=== PATIENT | female | born 1975 | race African-American/Black ===

== ENCOUNTER → 2017-02-24 | Outpatient (CLI) | payer OTHER ==
--- NOTE | 2017-02-24 13:33 | Diagnostic Imaging Report ---
EXAMINATION: Right breast ultrasound. INDICATION: Right breast hypoechoic lesion at the 8 o'clock zone. COMPARISON: 08/10/2016. FINDINGS: The previously seen lobulated lesion at the 8 o'clock zone 3 cm from the nipple is again noted measuring 0.9 x 0.4 x 0.6 cm, questionably minimally smaller compared to the prior study. Internal hypoechogenicity is seen with no internal blood flow. The lesion is favored to be a complicated cyst. An adjacent simple cyst is seen. IMPRESSION: A 0.9 cm hypoechoic lesion is favored to be a complicated cyst, questionably smaller compared to 08/10/2016. Re-evaluation with ultrasound when the patient is due for her next bilateral mammogram in July 2017 is recommended. ACR BI-RADS Category 3: Probably benign findings. Dictated by: Dictated on workstation # [id number]
== END ==
LOC: RAD 12:15
PROVIDERS: ATTEND Nurse Practitioner Family
DX: N60.01 Solitary cyst of right breast (principal)

== ENCOUNTER → 2017-08-17 | Outpatient (CLI) | payer OTHER ==
--- NOTE | 2017-08-17 10:52 | Diagnostic Imaging Report ---
Bilateral diagnostic mammogram with tomography. CAD is utilized. INDICATION: Followup asymmetry in the upper aspect on the right MLO view. FINDINGS: The breasts are composed of heterogeneously dense parenchyma which may decrease mammographic sensitivity. The asymmetry seen previously in the upper aspect on the right MLO view is less prominent on the current exam. No definite underlying lesion seen at this time. IMPRESSION: Dense breasts with no definite focal lesion identified. Ultrasound evaluation pending. ACR BI-RADS Category 0: Incomplete. (Needs additional imaging evaluation). Result letter will be mailed to the patient. Note: At least 10% of breast cancer is not imaged by mammography. Dictated by: Dictated on workstation # [id number]
--- NOTE | 2017-08-17 11:14 | Diagnostic Imaging Report ---
Right breast ultrasound. INDICATION: Followup indeterminate hypoechoic lesion at 8 o'clock zone. COMPARISON: 08/10/2016. FINDINGS: There is a 9-mm hypoechoic lesion seen at 8 o'clock zone, 3 cm from the nipple seen. There is increased through-transmission. No internal vascularity is demonstrated as reported by the medicine technologist. The image documenting this is not sent to PACS, however. When compared to the previous studies this appears stable/ minimally smaller in size. IMPRESSION: Stable/ minimally smaller 9-mm hypoechoic lesion at 8 o'clock zone 3 cm from the nipple could represent a complicated cyst. Another followup when the patient is due for her next bilateral mammogram in August 2018 is recommended to ensure longer-term stability. ACR BI-RADS Category 3: Probably benign findings. Result letter will be mailed to the patient. Note: At least 10% of breast cancer is not imaged by mammography. Dictated by: Dictated on workstation # [id number]
== END ==
LOC: RAD 08:11
PROVIDERS: ATTEND Nurse Practitioner Family
DX: N63.10 Unspecified lump in the right breast, unspecified quadrant (principal)
CPT/HCPCS: 77066